=== PATIENT | female | born 1960 | race Caucasian/White ===

== ENCOUNTER 2020-03-02 11:20 | Day surgery (SDC) | payer OTHER, SELFPAY ==
[~2020-03-02] VITALS: Ht 170.2 cm; Wt 99.8 kg
[2020-03-02] MEDS ORDERED: MIDAZOLAM 2 MG/2 ML VIAL ONE (12:41)
[2020-03-02] MEDS ORDERED: fentaNYL 0.05 MG/ML VIAL ONE (12:41)
[2020-03-02] MEDS ORDERED: diphenhydrAMINE 50 MG/ML VIAL ONE (12:41)
[2020-03-02] MEDS ORDERED: BUPIVACAINE-MPF/EPI 0.25% 30 ML VIAL INJ ONE (12:42)
[2020-03-02] MEDS ORDERED: LIDOCAINE 1% 500 MG/50 ML VIAL ONE (12:42)
[2020-03-02] MEDS ORDERED: MIDAZOLAM 2 MG/2 ML VIAL IVP ONE (12:54)
[2020-03-02] MEDS ORDERED: fentaNYL 0.05 MG/ML VIAL IVP ONE (12:54)
[2020-03-02] MEDS ORDERED: ONDANSETRON 4 MG/2 ML VIAL IV PRN (13:10)
[2020-03-02] MEDS ORDERED: HYDROcodone/APAP 5/325 MG 1 TAB TAB PO PRN (13:10)
[2020-03-02] MEDS ORDERED: MORPHINE SULFATE 2 MG/ML SYR IVP PRN (13:10)
[2020-03-02] MEDS ORDERED: MORPHINE SULFATE 4 MG/ML SYR IV PRN (13:10)
[2020-03-02] MEDS ORDERED: HYDROmorphone 1 MG/ML AMP IVP PRN (13:10)
== END 2020-03-02 14:10 | disposition home or self-care (01) ==
LOC: MDS 11:20 → MMU 11:20 → MDS 14:10
PROVIDERS: ATTEND Surgery
DX: T87.89 Other complications of amputation stump (principal); Y83.8 Other surgical procedures as the cause of abnormal reaction of the patient, or of later complication, without mention of misadventure at the time of the procedure; Z98.890 Other specified postprocedural states; Z85.038 Personal history of other malignant neoplasm of large intestine; Z11.59 Encounter for screening for other viral diseases
CPT/HCPCS: 10160; 36415; J2001; J2250; J3010; J3490; U0003; J1200